=== PATIENT | female | born 1985 | race Caucasian/White ===

== ENCOUNTER → 2018-11-18 08:23 | Outpatient (CLI) | payer BC, SELFPAY ==
--- NOTE | 2018-11-18 08:58 | FL_ITS ---
FL small bowel follow through CLINICAL INDICATION: ITS.REASON: H/O CROHNS,R/O ENTEROVAGINAL FISTULA ORDERING PHYSICIAN: Justice Myles MD PATIENT AGE: 33 years Comparison: None Fluoroscopy time: 56 Seconds FINDINGS: Circle Edger exam is unremarkable. The small bowel has an unremarkable appearance. No obstructing lesions dilatation or mucosal abnormalities or masses are evident. Terminal ileum has an unremarkable appearance. The appendix didn't fill. No fistulous connection between the urinary bladder identified. No extravasation. IMPRESSION: Negative small bowel series
== END ==
PROVIDERS: PCP Nurse Practitioner; Visit Provider Internal Medicine Gastroenterology
DX: Z87.19 Personal history of other diseases of the digestive system (principal)
CPT/HCPCS: 74250

== ENCOUNTER → 2020-07-27 14:25 | Outpatient (CLI) | payer BC, SELFPAY ==
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
== END ==
PROVIDERS: PCP Nurse Practitioner Family; Visit Provider Nurse Practitioner Family
DX: S99.912A Unspecified injury of left ankle, initial encounter (principal); M25.472 Effusion, left ankle
CPT/HCPCS: 73610

== ENCOUNTER → 2020-08-22 11:50 | Outpatient (CLI) | payer BC, SELFPAY ==
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
== END ==
PROVIDERS: PCP Nurse Practitioner Family; Visit Provider Family Medicine
DX: R10.10 Upper abdominal pain, unspecified (principal)
CPT/HCPCS: 74170; Q9967

== ENCOUNTER → 2020-09-12 08:28 | Outpatient (CLI) | payer BC, SELFPAY ==
--- NOTE | 2020-09-12 08:39 | US_ITS ---
PROCEDURE: US GALLBLADDER CLINICAL INDICATION: right upper quad pain COMPARISON: CT CT ABDOMEN WO/W CON from 08/22/2020 FINDINGS: Pancreas: Unremarkable/Not well seen Liver: Unremarkable. There is appropriate direction of blood flow within a non dilated portal vein. Right kidney: Unremarkable appearing. No hydronephrosis. Gallbladder: Gallstones are present. Common bile duct is normal at 3 mm. No gallbladder wall thickening, pericholecystic fluid, or biliary dilatation is evident. IMPRESSION: Cholelithiasis Dictated by: Jean-Pierre Mitchell MD 09/12/2020 18:13 Jean-Pierre Mitchell MD in [place] 09/12/2020 18:13
== END ==
PROVIDERS: PCP Nurse Practitioner Family; Visit Provider Surgery
DX: R10.11 Right upper quadrant pain (principal)
CPT/HCPCS: 76705

== ENCOUNTER → 2020-10-01 14:35 | Outpatient (CLI) | payer BC, SELFPAY ==
[2020-10-01 14:58] LABS: Basophils % 0.5 % (0.1-2.0); Eosinophils # 0.3 K/mm3 (0.0-0.4); Eosinophils % 3.9 % (0.1-12.0); Hematocrit 42.9 % (37.0-47.0); Hemoglobin 14.7 g/dL (12.2-16.2); Lymphocytes # 2.3 K/mm3 (0.7-4.5); Lymphocytes % 32.3 % (10-50); Mean Corpuscular HGB Conc 34.2 g/dL (31.8-35.4); Mean Corpuscular Hemoglobin 30.3 pg (27.0-31.2); Mean Corpuscular Volume 88.6 fl (81-99); Mean Platelet Volume 7.9 fl (7.4-10.4); Monocytes # 0.3 K/mm3 (0.1-1.0); Monocytes % 4.8 % (1.7-9.3); Neutrophils # 4.1 K/mm3 (1.8-7.8); Neutrophils % 58.5 % (37.0-80.0); Platelet Count 333 K/mm3 (142-424); Red Blood Count 4.84 M/mm3 (4.20-5.40); Red Cell Distribution Width 13.3 % (11.5-17.5)
[2020-10-01 15:23] LABS: INR 0.99 (0.9-1.1)
[2020-10-01 15:44] LABS: Chloride 101 mmol/L (98-107)
[2020-10-01 15:45] LABS: Potassium 3.7 mmoL/L (3.5-5.1); Sodium 139 mmol/L (136-145)
[2020-10-01 15:47] LABS: Alanine Aminotransferase 27 U/L (12-78); Alkaline Phosphatase 52 U/L (38-126); Amylase 50 U/L (30-110); Anion Gap 12.7 mEq/L (5-15); Aspartate Amino Transferase 31 U/L (14-36); Bilirubin,Total 0.5 mg/dl (0.2-1.3); Blood Urea Nitrogen 14 mg/dl (7-17); Carbon Dioxide 29 mmol/L (22.0-30.0); Estimated Glomerular Filt Rate 71 ml/min (>60); GFR (African American) 86 ML/MIN (>60)
[2020-10-01 15:48] LABS: Albumin Level 4.5 g/dl (3.5-5.0); Albumin/Globulin Ratio 1.6 (1.1-1.8); Calcium 9.6 mg/dl (8.4-10.2); Globulin 2.8 g/dL (1.3-3.2); Glucose 119 mg/dl (74-100); Lipase 135 U/L (23-300); Total Protein,Serum 7.3 g/dl (6.3-8.2)
[2020-10-01 16:00] LABS: Coronavirus 19 IgG Antibody Negative (Negative); Coronavirus 19 IgM Antibody Negative (Negative)
== END ==
PROVIDERS: Visit Provider Surgery
DX: Z01.818 Encounter for other preprocedural examination (principal); K80.20 Calculus of gallbladder without cholecystitis without obstruction
CPT/HCPCS: 36415; 80053; 82150; 83690; 85025; 85610; 86328

== ENCOUNTER 2020-10-03 07:05 | Day surgery (SDC) | payer BC, SELFPAY ==
[2020-10-01 11:07] VITALS: BMI 35.4
[2020-10-03] VITALS (16 sets, daily range): BP systolic 117–142; BP diastolic 65–99; PULSE 54–81; RESP 12–25; TEMP 36.1–43; O2SAT 92–98
--- NOTE | 2020-10-03 08:09 | HMH.ANESCL ---
[facility] Anesthesia Checklist - Patient Identification Patient Identification: Arm Band, Verbal (Name & ) - Structural Data Admitted From: Home Planned Operative Procedure/s: lap choly Consent for Planned Operative Procedure(s) Verified: Yes Verified Documents: History and Physical - NPO Status Verified Time NPO: 00:00 - Chart Verification Results Verified: CBC, BMP - Additional verifications Patient : No Anesthesia Reactions: No Hx Blood Transfusions: No Blood Transfusion Reaction: No Cephalosporin Allergy: No Previous Colonoscopy: No - Cardiovascular Assessment Heart Sounds: S1 & S2 Pulse Strength: Baseline Pulse Rhythm: Regular Peripheral Edema: No - Airway Assessment C-Spine Mobility Assessed: Yes TMJ Mobility Assessed: Yes Dentition: Good Dentition - Neurological Assessment Level of Consciousness: Awake, Alert, Appropriate Hx Seizures: No Numbness or tingling in extremities: No - Anesthesia Plan Anesthesia Risk discussed: Yes Anesthesia Plan: Verified ASA Class: II Anesthesia Type: General [facility] History I have reviewed the patient's past medical history: Yes Medical History: Reports:: Anxiety, Gastroesophageal Reflux Disease(GERD), Hyperlipidemia, Hypertension Denies:: Cancer, Diabetes Mellitus Type 1, Diabetes Mellitus Type 2, Internal Pacemaker, Lung Disease, MRSA, Seizures *Have you ever received a pneumonia vaccine?: No *Have you received a flu vaccine this season?: No Other Medical History: Denies: Blood Transfusion Reaction Anesthesia experience/problems:: none Other Surgeries: Yes: Colonoscopy, EGD, Hysterectomy-Total, Other (Back sx, ). No: Pacemaker Amputation: No Fractures: No - *Social History Last grade of school completed: Some college Smoking Status: Never smoker Alcohol Intake: never Substance Use Type: other *Occupational Status:: employed Housing: house Household Members: spouse, family *Travel in the last 8 weeks: None - Psychiatric History Pschychiatric History:: Reports:: Anxiety Family Hx:: Non-contributory
--- NOTE | 2020-10-03 10:09 | HMH.OPNOTE ---
Date of procedure: 10/03/20 Pre-op Diagnosis:: Symptomatic gallstones Post-op Diagnosis:: Same Procedure performed:: Laparoscopic cholecystectomy Surgeon:: Vimal Singh MD APPRAISER:: Noel Culp Anesthesia: GETLita Estimated blood loss (mL): 20 Clinical Note:: Patient is a 35-year-old female referred by Dr. Butler for gallbladder. Patient states that in late August she developed horrible pain across her lower abdomen. He does have a reported history of Crohn's disease but the symptoms are very atypical and she has not had a Crohn's flareup in many years. She then developed severe pain across her right abdomen to her epigastric area. She was seen in her primary care provider's office and had a CT scan performed. This was unremarkable other than gallstones. She describes lower abdominal pain radiating around her right side and epigastrium. Her symptoms are exacerbated by certain movements, sexual intercourse, defecation, lifting and pulling, and urinating. She denies any bowel changes. I reviewed her CT scan. There are no other findings other than gallstones. Her symptoms are somewhat atypical but it sounds as though it is likely at least a portion of her symptoms are secondary to her gallbladder. I discussed the options with her and offered her surgery. I explained to her that all of her symptoms may not be alleviated with cholecystectomy. Patient strongly desired proceeding with surgery. Plan will be to proceed with laparoscopic possibly open cholecystectomy. Operative findings:: She had a distended somewhat thickened gallbladder with gallstone. She did have some fatty infiltration of the liver. At the time of the procedure she did have some gaseous distention of the right colon. Operative note:: Patient was taken to the operating room. She was given preoperative intravenous antibiotics. In the operating room she was placed in a supine position. General anesthesia was induced. Abdomen was prepped and draped in the standard surgical fashion. Subumbilical skin incision was made and while performing abdominal wall lift Veress needle was inserted. CO2 pneumoperitoneum was achieved to 15 mmHg. 11 mm optical trocar was inserted at the umbilicus. Intraperitoneal contents were visualized. She was positioned in reverse Trendelenburg and left side down. A couple of 5 mm trochars were inserted in the right upper abdomen. 10 mm trocar was inserted in the epigastrium. She did have some fatty infiltration of the liver. Gallbladder was grasped retracted anteriorly and superiorly over the dome of the liver. Infundibulum was retracted anterior laterally. Blunt dissection was carried out the neck of the gallbladder bluntly incising the visceral peritoneum. Dissection was carried out identifying the cystic duct and cystic artery. Cystic duct was isolated, multiply clipped, and sharply divided. Cystic artery was carefully coagulated with SUZI ultrasonic harmonic mignon. Gallbladder was dissected free from the liver in a retrograde fashion using SUZI ultrasonic harmonic mignon. Gallbladder was placed within an Endo Catch retrieval device removed from the peritoneal cavity via the umbilical trocar site. Judicious use of electrocautery was used on the gallbladder fossa for good hemostasis. Limited irrigation was performed. Trochars were then removed as CO2 pneumoperitoneum was evacuated. Fascia at the umbilicus was closed with a couple of 0 Vicryl sutures. Local anesthetic was infiltrated. Skin incisions were closed with 4-0 Monocryl in a subcuticular fashion. Steri-Strips and dressings were applied. Condition: stable Disposition: PACU Specimens:: Gallbladder and contents Complications:: None immediately apparent
--- NOTE | 2020-10-03 10:21 | P.PN_ITS ---
[facility] Anesthesia Record Part I Intake, IV Amount: 600 Estimated blood loss (mL): 20 Urine output (mL): 0 Blood Products used (#): none Blood Pressure: 142/65 SaO2: 95 Pulse Rate: 81 Respiratory Rate: 12 Temperature: 97.7 F Patient is:: Awake, Drowsy, Nasal O2, Stable Stable to PACU at:: 10:17
--- NOTE | 2020-10-04 07:05 | P.PN_ITS ---
[facility] Anesthesia Record Part II Discharge Time: 10:47 Destination: Surgical Day Care (OP Surgery) PACU nurse assessment reviewed?: Yes Patient Condition:: Good Anesthesia Complications:: None Swallowing reflex intact?: Yes Cyanosis?: No Blood Pressure: 131/87 Pulse Rate: 60 Temperature: 97.7 F Mental Status: Alert & Oriented Pain level:: 4 Nausea and/or vomitting:: None Intake, IV Amount: 0
[2020-10-04 07:06] VITALS: BP 131/87; PULSE 60; TEMP 36.5
== END 2020-10-03 12:18 | disposition home or self-care (01) ==
PROVIDERS: PCP Nurse Practitioner Family; Visit Provider Surgery
PROC: 0FT44ZZ Resection of Gallbladder, Percutaneous Endoscopic Approach (ICD-10-PCS; CPT 47562; principal; 2020-10-03 08:45)
DX: K80.20 Calculus of gallbladder without cholecystitis without obstruction; K76.0 Fatty (change of) liver, not elsewhere classified; K63.89 Other specified diseases of intestine; I10 Essential (primary) hypertension; E78.5 Hyperlipidemia, unspecified; K21.9 Gastro-esophageal reflux disease without esophagitis; F41.9 Anxiety disorder, unspecified; Z79.899 Other long term (current) drug therapy
CPT/HCPCS: 47562; 96374; J2405; J2710

== ENCOUNTER 2021-06-12 14:04 | Emergency (ER) | payer BC, SELFPAY ==
[2021-06-12 14:06] VITALS: BP 116/71; PULSE 74; RESP 20; TEMP 36.9; O2SAT 94; BMI 34.3
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
--- NOTE | 2021-06-12 14:39 | PC.NURSE ---
notified rad of orders on pt
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
[2021-06-12 15:58] VITALS: BP 116/79; PULSE 75; RESP 16; TEMP 36.9; O2SAT 95
== END 2021-06-12 16:00 | disposition home or self-care (01) ==
PROVIDERS: Emergency Provider Internal Medicine; PCP Nurse Practitioner Family
DX: S16.1XXA Strain of muscle, fascia and tendon at neck level, initial encounter (principal); V43.52XA Car driver injured in collision with other type car in traffic accident, initial encounter; Y92.414 Local residential or business street as the place of occurrence of the external cause; S50.12XA Contusion of left forearm, initial encounter; S20.219A Contusion of unspecified front wall of thorax, initial encounter; S30.1XXA Contusion of abdominal wall, initial encounter
CPT/HCPCS: 70450; 71046; 72125; 73090; 99282

== ENCOUNTER → 2021-08-12 12:01 | Outpatient (CLI) | payer BC, SELFPAY ==
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
== END ==
PROVIDERS: PCP Family Medicine; Visit Provider Nurse Practitioner Family
DX: M54.42 Lumbago with sciatica, left side (principal); M54.41 Lumbago with sciatica, right side; Z98.890 Other specified postprocedural states
CPT/HCPCS: 72110

== ENCOUNTER → 2021-08-29 10:58 | Outpatient (CLI) | payer BC, SELFPAY ==
--- NOTE | 2021-08-29 11:10 | MR_ITS ---
PROCEDURE: MR LUMBAR SPINE WO CON CLINICAL INDICATION: LBP Low back pain times 3-4 months without known injury. Patient states she had lumbar surgery in 2014. COMPARISON: CT CT ABDOMEN WO/W CON from 08/22/2020 CR XR LUMBAR SPINE MIN 4V from 08/12/2021 TECHNIQUE: Standard multiplanar multiecho sequences are performed without contrast. 3-D MIP and myelographic images are also rendered and reviewed FINDINGS: There is straightening of the lumbar lordosis. There is degenerative disc disease at L5-S1 with disc space narrowing and minimal retrolisthesis of L5 on S1. At L1-2, there is no canal or neural foraminal stenosis. At L2-3, she there is no canal or neural foraminal stenosis. At L3-4, there is no canal or neural foraminal stenosis. At L4-5, there is mild diffuse disc bulge producing mild bilateral neural foraminal stenosis. There is also fluid within the facet joints bilaterally at this level suggesting this may be a pain generator. At L5 S1, there is diffuse disc bulge producing moderate right and mild left neural foraminal stenosis. There is also fluid in the facets at this level suggesting this may be a pain generator. IMPRESSION: Edema in bilateral facet joints at L4-5 and L5-S1 (worst at L4-5) suggesting this may be a pain generator. Consider bilateral facet joint injections at these levels. Dictated by: Carine Harrison MD 08/29/2021 14:00 Carine Harrison MD in [place] 08/29/2021 14:00
== END ==
PROVIDERS: PCP Family Medicine; Visit Provider Nurse Practitioner Family
DX: M54.42 Lumbago with sciatica, left side (principal); Z98.890 Other specified postprocedural states
CPT/HCPCS: 72148; 76376

== ENCOUNTER 2021-09-11 10:07 | Emergency (ER) | payer BC, SELFPAY ==
[2021-09-11 11:13] LABS: UTC Strep Screen (Rapid) Negative (Negative)
[2021-09-11 11:17] VITALS: BP 150/94; PULSE 78; RESP 20; TEMP 36.9; O2SAT 98; BMI 35.5
--- NOTE | 2021-09-11 11:30 | HMH.EDUTC ---
[facility] [place] Disposition Clinical Impression: Viral syndrome Sinusitis Qualifiers: Sinusitis location: unspecified location Chronicity: acute Recurrence: non-recurrent Qualified Code(s): J01.90 - Acute sinusitis, unspecified Disposition: Home, Self-Care Condition on Discharge: Good Instructions: Sinusitis, DI for Sinusitis Additional Instructions: Drink plenty of fluids. Take tylenol or ibuprofen for pain or fever. Take the medications as directed. Follow up with your regular doctor. GO TO THE ER FOR ANY WORSENING SYMPTOMS Quarantine until you know the results of your covid-19 test. If it is positive, the health department should call you and give you further instructions about your length of Quarantine and other things. Notify your school or workplace of your results and follow their instructions regarding return to work/school. Prescriptions: Brompheniramine/Pseudoephed/Dm [Bromfed Dm Cough Syrup] 5 ml PO Q6HP PRN #240 ml PRN Reason: Cough Transmission Status: Received by [facility] #[id number] Ondansetron [Zofran 4mg ODT] 4 mg PO Q8HP PRN #12 tab PRN Reason: Nausea Transmission Status: Received by [facility] #[id number] Azithromycin [Z-Reuben 250mg Tab*] 250 mg PO UD DOSE PK #6 tab Transmission Status: Received by [facility] #[id number] Referrals: Ligia Phillips APRN [Primary Care Provider] - Forms: Work/School Release Time of Disposition: 12:00 Medical Decision Making - Medical Records Medical records reviewed: No: I reviewed the patient's medical records. - Jose Guadalupe Inquiry Pt receiving controlled substance: No Vital Signs: 09/11/21 11:17 09/11/21 12:05 Temperature 98.5 F 98.5 F Temperature Source Oral Pulse Rate 78 Pulse Rate [Left] 78 Respiratory Rate 20 20 Blood Pressure 150/94 H Blood Pressure [Right Arm] 150/94 H Blood Pressure Mean [Right Arm] 112 02 Sat by Pulse Oximetry 98 - Lab Data Lab Results 09/11/21 11:06: Strep Scn Rapid Clinic Negative Orders (Tests/Meds): ORDERS Category Date Time Status Strep Screen Confirmation Routine Micro 09/11/21 11:06 Received [facility] [place] HPI - General Stated complaint: sore throat, cough, congestion Time Seen by Provider: 09/11/21 11:30 Mode of Arrival: Ambulatory Source of Information: Patient Limitations: No Limitations Description of Symptoms (Recalled from Triage Doc. by RN): pt c/o sore throat, MOSER, cough, congestion, nausea, lethargy and bilateral ear aches. x3 days. HEENT Symptoms (Recalled from RN notes): Yes (sore throat, MOSER, bilateral ear aches, congestion) Resp Symptoms (Recalled from RN notes): Yes (cough) Skin Symptoms (Recalled from RN notes): No MS Symptoms (Recalled from RN notes): No Functional Status (Recalled from RN notes): lethargy - History of Present Illness Provider Complaint: She c/o feeling bad and chilling for the past 1 day. She also has a sore throat and a runny nose. She has a cough, but she does not have significant chest congestion. She is also having nausea and diarrhea. - Related Data Home Medications Medication Instructions Recorded Confirmed Escitalopram Oxalate [Lexapro] 10 mg PO DAILY 11/11/18 08/28/21 Propranolol HCl 80 mg PO DAILY 11/11/18 08/28/21 Thyroid,Pork [[place] Thyroid] 60 mg PO DAILY 11/11/18 08/28/21 gemfibroziL [Gemfibrozil] 600 mg PO DAILY 11/11/18 08/28/21 hydroCHLOROthiazide [HCTZ 25mg 25 mg PO DAILY 11/11/18 08/28/21 tab] Previous Rx's Medication Instructions Recorded Diclofenac Sodium [Diclofenac 75mg 75 mg PO BID 10 Days #20 tab 06/12/21 Tab] Azithromycin [Z-Reuben 250mg Tab*] 250 mg PO UD DOSE PK #6 tab 09/11/21 Brompheniramine/Pseudoephed/Dm 5 ml PO Q6HP PRN #240 ml 09/11/21 [Bromfed Dm Cough Syrup] Ondansetron [Zofran 4mg ODT] 4 mg PO Q8HP PRN #12 tab 09/11/21 Allergies Allergy/AdvReac Type Severity Reaction Status Date / Time benztropine Allergy Unknown Verified 08/28/21 14:20 allergy
[2021-09-11 12:05] VITALS: BP 150/94; PULSE 78; RESP 20; TEMP 36.9
== END 2021-09-11 12:10 | disposition home or self-care (01) ==
PROVIDERS: Emergency Provider Nurse Practitioner Family; PCP Nurse Practitioner Family
DX: B34.9 Viral infection, unspecified (principal); J01.90 Acute sinusitis, unspecified; Z20.822 Contact with and (suspected) exposure to COVID-19; I10 Essential (primary) hypertension; E78.5 Hyperlipidemia, unspecified; K21.9 Gastro-esophageal reflux disease without esophagitis; Z79.899 Other long term (current) drug therapy
CPT/HCPCS: 87880; 99202; C9803; G0463; U0003; U0005

== ENCOUNTER → 2021-11-29 10:19 | Outpatient (CLI) | payer BC, SELFPAY ==
[2021-11-30 15:10] LABS: Covid-19 Nasal PCR Sendout Lex POSITIVE
== END ==
PROVIDERS: Visit Provider Nurse Practitioner
DX: U07.1 COVID-19 (principal)
CPT/HCPCS: C9803; U0004; U0005

== ENCOUNTER → 2021-12-04 16:06 | Outpatient (CLI) | payer BC, SELFPAY | PROVIDERS: Visit Provider Nurse Practitioner Obstetrics & Gynecology | DX: N61.1 Abscess of the breast and nipple (principal) | CPT/HCPCS: 87070; 87077; 87186; 87205 ==

== ENCOUNTER → 2022-01-15 07:51 | Outpatient (CLI) | payer BC, SELFPAY ==
--- NOTE | 2022-01-15 07:51 | MM_ITS ---
PROCEDURE INFORMATION: Exam: Bilateral Screening 3D Mammography Exam date and time: 01/15/2022 7:51 AM Age: 36 years old Clinical indication: Baseline. Family history of maternal great aunt and paternal aunts with breast cancer. TECHNIQUE: Imaging protocol: Bilateral Screening tomosynthesis and 2D mammography including computer-aided detection (CAD) when performed. COMPARISON: No relevant prior studies available. FINDINGS: MAMMOGRAPHY: Breast composition: The breast tissue is composed of scattered areas of fibroglandular density. Mass: None. Architectural distortion: None. Calcifications: No suspicious calcifications. Asymmetric density: None. Skin thickening: None. Axillary adenopathy: None. IMPRESSION: No mammographic evidence of malignancy. Annual screening is recommended unless otherwise clinically indicated. ASSESSMENT: BI-RADS Category 1: Negative
== END ==
PROVIDERS: PCP Nurse Practitioner Family; Visit Provider Nurse Practitioner Obstetrics & Gynecology
DX: Z12.31 Encounter for screening mammogram for malignant neoplasm of breast (principal)
CPT/HCPCS: 77063; 77067

== ENCOUNTER 2022-02-10 09:00 | Emergency (ER) | payer BC, SELFPAY ==
[2022-02-10 09:10] VITALS: BP 126/88; PULSE 73; RESP 18; TEMP 36.7; O2SAT 97; BMI 36.6
--- NOTE | 2022-02-10 09:23 | XR_ITS ---
FINAL REPORT CLINICAL HISTORY: pain FINDINGS: Two views of the left tibia-fibula demonstrate no acute fracture or dislocation. The joint spaces appear normal. The visualized bony structures are well aligned. No soft tissue abnormality is seen. IMPRESSION: No acute process. Reviewed, Interpreted and Dictated by Shlomo Mireles MD Transcribed by Tuan Portillo Authenticated by Shlomo Mireles MD on 02/10/2022 11:05:07 AM [facility]
--- NOTE | 2022-02-10 09:23 | XR_ITS ---
FINAL REPORT CLINICAL HISTORY: pain from wrestling with FINDINGS: 2 views of the left hip were obtained. There is no acute fracture or dislocation. The joint spaces are intact. There are no soft tissue abnormalities. IMPRESSION: No acute process. Reviewed, Interpreted and Dictated by Shlomo Mireles MD Transcribed by Tuan Portillo Authenticated by Shlomo Mireles MD on 02/10/2022 11:05:06 AM [facility]
--- NOTE | 2022-02-10 09:23 | XR_ITS ---
FINAL REPORT CLINICAL HISTORY: pain wrestling with FINDINGS: 3 views of the left knee were obtained. There is no acute fracture or dislocation. The joint spaces are intact. There is no soft tissue abnormality. IMPRESSION: No acute process. Reviewed, Interpreted and Dictated by Shlomo Mireles MD Transcribed by Tuan Portillo Authenticated by Shlomo Mireles MD on 02/10/2022 11:05:06 AM [facility]
--- NOTE | 2022-02-10 09:23 | XR_ITS ---
FINAL REPORT CLINICAL HISTORY: pain,wrestling with FINDINGS: Multiple views of the left femur were obtained. There is no acute fracture or dislocation. Visualized joint spaces are intact. There is no acute soft tissue abnormality. IMPRESSION: No acute process. Reviewed, Interpreted and Dictated by Shlomo Mireles MD Transcribed by Tuan Portillo Authenticated by Shlomo Mireles MD on 02/10/2022 11:05:05 AM [facility]
--- NOTE | 2022-02-10 09:23 | XR_ITS ---
FINAL REPORT CLINICAL HISTORY: pain FINDINGS: LEFT ANKLE: Three views of the left ankle were obtained. There is no acute fracture or dislocation. The joint spaces and mortise are intact. There is a moderate plantar spur. An os trigonum is present. There is no soft tissue abnormality. IMPRESSION: No acute process. Reviewed, Interpreted and Dictated by Shlomo Mireles MD Transcribed by Tuan Portillo Authenticated by Shlomo Mireles MD on 02/10/2022 11:05:08 AM [facility]
--- NOTE | 2022-02-10 09:48 | HMH.EDUTC ---
[facility] [place] Disposition Clinical Impression: Left leg pain, Strain of other muscle(s) and tendon(s) at lower leg level, left leg, initial encounter Disposition: Home, Self-Care Condition on Discharge: Good Instructions: DI for Leg Pain, How to Use a Knee Immobilizer, How to Use Crutches Additional Instructions: Rest the extremity, apply ice for 15 minutes as tolerated three or four times per day, Elevate the extremity as tolerated while you are resting. Take ibuprofen for pain. I sent in a prescription to your pharmacy. Follow up with Dr. Armstrong (orthopedics). I put in a referral but you need to call his office and schedule an appointment. Follow up with your regular doctor. GO TO THE ER FOR ANY WORSENING SYMPTOMS Prescriptions: Ibuprofen [Ibuprofen 800mg Tablet] 800 mg PO Q8HP PRN #30 tab PRN Reason: Moderate Pain Transmission Status: Pending to [facility] #[id number] Referrals: Ligia Phillips APRN [Primary Care Provider] - Paco Armstrong MD [Staff Physician] - Forms: Work/School Release Time of Disposition: 10:19 Medical Decision Making - Medical Records Medical records reviewed: No: I reviewed the patient's medical records. - Jose Guadalupe Inquiry Pt receiving controlled substance: No Vital Signs: 02/10/22 09:10 02/10/22 10:07 Temperature 98.1 F 98.1 F Temperature Source Oral Pulse Rate 73 Pulse Rate [Right Brachial] 73 Respiratory Rate 18 18 Blood Pressure 126/88 Blood Pressure [Right Arm] 126/88 Blood Pressure Mean [Right Arm] 100 Blood Pressure Source [Right Arm] Automatic Cuff Blood Pressure Position [Right Arm] Sitting 02 Sat by Pulse Oximetry 97 Oxygen Delivery Method Room Air Orders (Tests/Meds): ORDERS Category Date Time Status XR ankle LT min 3V Stat Exams 02/10/22 09:23 Taken XR femur LT 2V Stat Exams 02/10/22 09:23 Taken XR hip LT 2-3V w/pelvis Stat Exams 02/10/22 09:23 Taken XR knee LT 3V Stat Exams 02/10/22 09:23 Taken XR tibia fibula LT 2V Stat Exams 02/10/22 09:23 Taken [facility] [place] HPI - General Stated complaint: AO 4/9 lt leg pain Time Seen by Provider: 02/10/22 09:48 Mode of Arrival: Ambulatory Source of Information: Patient Limitations: No Limitations Description of Symptoms (Recalled from Triage Doc. by RN): PATIENT C/O PAIN TO LEFT LEG FROM HIP TO ANKLE. CANNOT PUT WEIGHT ON LEG OR STRAIGHTEN IT OUT. SHE STATES SHE WAS WRESTLING WITH HER 4 DAYS AGO AND FELT A SNAP/POP IN THAT LEG HEENT Symptoms (Recalled from RN notes): No Resp Symptoms (Recalled from RN notes): No Skin Symptoms (Recalled from RN notes): No MS Symptoms (Recalled from RN notes): Yes Functional Status (Recalled from RN notes): WNL - History of Present Illness Provider Complaint: She states that her and her were wrestling yesterday when her left leg got twisted. At first, she did not feel like it was hurt. But as the day went on her knee and lower leg got sore and painful to walk on. At this time, it hurts to straighten out her left leg. She denies any domestic abuse. - Related Data Home Medications Medication Instructions Recorded Confirmed Escitalopram Oxalate [Lexapro] 10 mg PO DAILY 11/11/18 02/10/22 Propranolol HCl 80 mg PO DAILY 11/11/18 02/10/22 Thyroid,Pork [[place] Thyroid] 60 mg PO DAILY 11/11/18 02/10/22 gemfibroziL [Gemfibrozil] 600 mg PO DAILY 11/11/18 02/10/22 hydroCHLOROthiazide [HCTZ 25mg 25 mg PO DAILY 11/11/18 02/10/22 tab] Previous Rx's Medication Instructions Recorded Ibuprofen [Ibuprofen 800mg 800 mg PO Q8HP PRN #30 tab 02/10/22 Tablet] Allergies Allergy/AdvReac Type Severity Reaction Status Date / Time benztropine Allergy Unknown Verified 12/04/21 15:09 allergy reaction prochlorperazine Allergy Unknown Verified 12/04/21 15:09 allergy reaction - Worker's Comp Is this a Worker's Comp case?: No H History - Hepatitis A Screen Drug use history?: No High risk sexual
[2022-02-10 10:07] VITALS: BP 126/88; PULSE 73; RESP 18; TEMP 36.7; O2SAT 97
== END 2022-02-10 10:35 | disposition home or self-care (01) ==
PROVIDERS: Emergency Provider Nurse Practitioner Family; PCP Nurse Practitioner Family
DX: S83.92XA Sprain of unspecified site of left knee, initial encounter (principal); S86.812A Strain of other muscle(s) and tendon(s) at lower leg level, left leg, initial encounter; X50.0XXA Overexertion from strenuous movement or load, initial encounter; X50.9XXA Other and unspecified overexertion or strenuous movements or postures, initial encounter; Y92.019 Unspecified place in single-family (private) house as the place of occurrence of the external cause; K21.9 Gastro-esophageal reflux disease without esophagitis; I10 Essential (primary) hypertension; E78.5 Hyperlipidemia, unspecified; F41.9 Anxiety disorder, unspecified; Z79.899 Other long term (current) drug therapy
CPT/HCPCS: 29505; 73502; 73552; 73562; 73590; 73610; 99213; G0463

== ENCOUNTER → 2022-03-18 07:51 | Outpatient (CLI) | payer BC, SELFPAY ==
--- NOTE | 2022-03-18 07:59 | MR_ITS ---
FINAL REPORT CLINICAL HISTORY: INJURY OF LEFT KNEE. KNEE PAIN X2 WKS. KNEE FEELS LIKE IT IS GOING TO GIVE OUT. SWELLING AROUND PATELLA. FINDINGS: Multiplanar MR imaging of the right knee was performed without contrast. The medial and lateral menisci are intact without evidence of meniscal tear. The anterior cruciate ligament has an abnormal appearance consistent with a partial tear. Some of the fibers appear intact. The posterior cruciate ligament is intact. The medial collateral ligament and lateral ligamentous complex are intact. The patellar and quadriceps tendons are intact. There is no evidence of fracture. No focal abnormality is identified of the articular cartilage. There is 8 mm of lateral patellar subluxation. There is edema in the superior aspect of Hoffa's fat pad which can be seen with patellar tracking disorder. A small joint effusion is seen. The musculature is intact. No soft tissue mass or cyst is identified. IMPRESSION: Partial tear of the anterior cruciate ligament. Lateral patellar subluxation with edema in the superior aspect of Hoffa's fat pad. Small joint effusion. Reviewed, Interpreted and Dictated by Vimal Mazariegos III, MD Transcribed by Tuan Portillo Authenticated by Vimal Mazariegos III, MD on 03/18/2022 10:27:08 AM [facility]
== END ==
PROVIDERS: PCP Nurse Practitioner Family; Visit Provider Nurse Practitioner Family
DX: M25.562 Pain in left knee (principal); M25.362 Other instability, left knee; S89.92XD Unspecified injury of left lower leg, subsequent encounter
CPT/HCPCS: 73721

== ENCOUNTER → 2023-03-06 11:18 | Outpatient (CLI) | payer BC, SELFPAY | LOC: RT 11:21 | PROVIDERS: PCP Nurse Practitioner Family; Visit Provider Nurse Practitioner | DX: R06.00 Dyspnea, unspecified (principal); R00.2 Palpitations; R60.9 Edema, unspecified; R94.31 Abnormal electrocardiogram [ECG] [EKG] | CPT/HCPCS: 93270 ==

== ENCOUNTER 2023-03-26 08:45 | Emergency (ER) | payer BC, SELFPAY ==
--- NOTE | 2023-03-26 08:44 | ECG_ITS ---
APPROVED REPORT Exam: Resting ECG HR:64 bpm ECG Measurements Heart Rate 64 AXES WV 186 P 40 QRSd 81 QRS 26 QT 411 T 30 QTc 421 Conclusion SINUS RHYTHM NORMAL ECG UNCONFIRMED REPORT Electronically signed by : Yoandy Centeno MD 03/26/2023 17:12:50
[2023-03-26 08:46] VITALS: BP 155/89; PULSE 61; RESP 14; TEMP 36.7; O2SAT 93; BMI 36.1
[2023-03-26 08:49] VITALS: BMI 36.1
[2023-03-26 08:50] VITALS: BMI 36.1
--- NOTE | 2023-03-26 08:51 | XR_ITS ---
FINAL REPORT CLINICAL HISTORY: left sided chest pain COMPARISON: 06/12/2021 FINDINGS: SINGLE-VIEW CHEST The heart size is normal. The mediastinum is normal. There are low lung volumes with mild bibasilar atelectasis. There is no pneumothorax. IMPRESSION: Mild bibasilar atelectasis. Reviewed, Interpreted and Dictated by Vimal Mazariegos III, MD Transcribed by Ashley Antunez Authenticated and [facility]
[2023-03-26 08:58] LABS: Basophils # 0.1 K/mm3 (0-0.2); Basophils % 0.6 % (0.1-2.0); Eosinophils # 0.1 K/mm3 (0.0-0.4); Eosinophils % 1.3 % (0.1-12.0); Hematocrit 43.9 % (37.0-47.0); Hemoglobin 14.3 g/dL (12.2-16.2); Lymphocytes # 1.9 K/mm3 (0.7-4.5); Lymphocytes % 22.1 % (10-50); Mean Corpuscular HGB Conc 32.4 g/dL (31.8-35.4); Mean Corpuscular Hemoglobin 29.6 pg (27.0-31.2); Mean Corpuscular Volume 91.2 fl (81-99); Mean Platelet Volume 7.9 fl (7.4-10.4); Monocytes # 0.4 K/mm3 (0.1-1.0); Monocytes % 4.3 % (1.7-9.3); Neutrophils # 6.3 K/mm3 (1.8-7.8); Neutrophils % 71.5 % (37.0-80.0); Platelet Count 344 K/mm3 (142-424); Red Blood Count 4.82 M/mm3 (4.20-5.40); White Blood Count 8.8 K/mm3 (4.8-10.8)
--- NOTE | 2023-03-26 08:58 | HMH.EDGENADL ---
Discharge Plan Disposition Patient Disposition: Home, Self-Care Condition: Good Prescriptions Prescriptions: New meloxicam 7.5 mg tablet 7.5 mg PO DAILY Qty: 14 0RF cyclobenzaprine 10 mg tablet 10 mg PO TID PRN (Reason: muscle spasm) Qty: 14 0RF No Action cetirizine 10 mg tablet 10 mg PO DAILY Label Comments: TAKE 1 TABLET BY MOUTH EVERY DAY [place] Thyroid 120 mg tablet 120 mg PO DAILY Label Comments: TAKE 1 TABLET BY MOUTH EVERY DAY ON AN EMPTY STOMACH cholecalciferol (vitamin D3) 50 mcg (2,000 unit) capsule 100 mcg PO DAILY propranolol 80 MG tablet 80 mg PO DAILY hydrochlorothiazide 25 MG tablet 25 mg PO DAILY escitalopram oxalate 10 MG tablet 10 mg PO DAILY gemfibrozil 600 mg tablet 600 mg PO BID ibuprofen 800 MG tablet 800 mg PO Q8HP PRN (Reason: Moderate Pain) Qty: 30 0RF Referrals Follow up/Referrals: Ligia Phillips APRN [Primary Care Provider] - See instructions Clinical Impressions Clinical Impression: Atypical chest pain Instructions Patient Instructions: DI for Atypical Chest Pain Print Language Print Language: Vincentian Discharge ED Provider: Horace Morales General Adult HPI General Chief complaint: Chest Pain Stated complaint: chest pain Time Seen by Provider: 03/26/23 09:56 Mode of Arrival: Ambulatory Source of Information: Patient Limitations: No Limitations Description of Symptoms (Recalled from ER Triage Doc. by RN): 37 yo F presents to ED with chest pain and shortness of air. pt states symptoms began around 0700 this am. pt was at work and the pain got worse. pt states pain was located in center of chest into left shoulder. pt states pain is currently in middle of back History of Present Illness HPI narrative: Patient presents to the emergency department with left-sided chest wall pain which started around 6:30 this morning. The patient states that she was at work and bending and twisting when she had a sudden onset of left-sided chest pain radiating into her back. She states it radiates around her chest wall. Describes some associated shortness of breath. Denies any nausea, vomiting or diaphoresis. States that she has a history of atherosclerosis which was noted on a ophthalmologically exam. She is followed by Dr. Koch. Denies any recent falls, trauma or illnesses Related Data Home Medications Medication Instructions Recorded Confirmed escitalopram oxalate 10 mg tablet 10 mg PO DAILY mood 11/11/18 03/05/23 hydrochlorothiazide 25 mg tablet 25 mg PO DAILY Fluid 11/11/18 03/05/23 propranolol 80 mg tablet 80 mg PO DAILY High blood pressure 11/11/18 03/05/23 cetirizine 10 mg tablet 10 mg PO DAILY 03/05/23 03/05/23 cholecalciferol (vitamin D3) 50 100 mcg PO DAILY 03/05/23 03/05/23 mcg (2,000 unit) capsule gemfibrozil 600 mg tablet 600 mg PO BID Cholesterol 03/05/23 03/05/23 thyroid (pork) 120 mg tablet 120 mg PO DAILY 03/05/23 03/05/23 ([place] Thyroid) Previous Rx's Medication Instructions Recorded ibuprofen 800 mg tablet 800 mg PO Q8HP PRN Moderate Pain 02/10/22 #30 tabs cyclobenzaprine 10 mg tablet 10 mg PO TID PRN muscle spasm #14 03/26/23 tabs meloxicam 7.5 mg tablet 7.5 mg PO DAILY #14 tabs 03/26/23 Allergies Allergy/AdvReac Type Severity Reaction Status Date / Time benztropine Allergy Unknown Verified 03/05/23 14:52 allergy reaction prochlorperazine Allergy Unknown Verified 03/05/23 14:52 allergy reaction PFSH PFS Disclaimer: The information contained in this section may have been updated after the patient was seen, as this information can be updated by other users. Medical History Abnormal electrocardiogram [ECG] [EKG] Chest pain Dyspnea Palpitations Social History Smoking Status: Never smoker alcohol intake: never substance
[2023-03-26 09:01] VITALS: BP 137/108; PULSE 63; RESP 18; O2SAT 96
[2023-03-26 09:04] LABS: Chloride 97 mmol/L (98-107); Potassium 3.9 mmoL/L (3.5-5.1); Sodium 140 mmol/L (136-145)
[2023-03-26 09:07] LABS: Anion Gap 16.9 mEq/L (5-15); Blood Urea Nitrogen 19 mg/dl (7-17); Calcium 9.2 mg/dl (8.4-10.2); Carbon Dioxide 30 mmol/L (22.0-30.0); Creatinine Clearance Estimated 139 mL/min (50-200); Estimated Glomerular Filt Rate 80 ml/min (>60); GFR (African American) 97 ML/MIN (>60); Glucose 108 mg/dl (74-100)
[2023-03-26 09:19] VITALS: BP 122/82; PULSE 67; RESP 18; O2SAT 96
[2023-03-26 09:24] LABS: Troponin I < 0.01 ng/ml (0.00-0.034)
[2023-03-26 09:30] VITALS: BP 121/80; PULSE 57; RESP 13; O2SAT 95
[2023-03-26 10:00] VITALS: BP 125/83; PULSE 60; RESP 12; O2SAT 94
[2023-03-26 10:13] VITALS: BP 125/83; PULSE 61; RESP 13; TEMP 36.7
== END 2023-03-26 10:15 | disposition home or self-care (01) ==
PROVIDERS: Emergency Provider Emergency Medicine; PCP Nurse Practitioner Family
DX: R07.89 Other chest pain (principal); R06.02 Shortness of breath
CPT/HCPCS: 71045; 80048; 84484; 85025; 93005; 96374; 96375; 99285

== ENCOUNTER → 2023-04-02 06:36 | Outpatient (CLI) | payer BC, SELFPAY ==
--- NOTE | 2023-04-02 06:37 | NM_ITS ---
APPROVED REPORT Exam: Nuclear Stress Test Indication: CHEST PAIN..SOA..PALPITATIONS..FATIGUE Patient Location: Outpatient Stress Tech: Shelia Christine VA Tech:Leslie FangSD RT(R)(N) Ht: 5 ft 3 in Wt: 207 lbs Bra Size: 38D HR: 74 bpm BP: 138/98 mmHg BSA: 1.96 m2 TID: 1.13 BMI: 36.6 History: CHEST PAIN..SOA..PALPITATIONS..FATIGUE Procedure: Patient received 0.4 mg of intravenous Lexiscan, resting heart rate 74 bpm, resting blood pressure 138/98 mmHg, with Lexiscan maximum heart rate achieved was 109 bpm which is 85 % of the maximum predicted heart rate and blood pressure was 141/93 mmHg. With Lexiscan, patient denied any complaint of chest pain. Cardiac Stress and Resting SPECT Images: Cardiac Stress and Resting SPECT images were obtained using technetium 99m Myoview 31.8 mCi stress and 10.75 mCi at rest. Resting and stress imaging in both supine and prone positions demonstrate no fixed or reversible perfusion defects. Gated imaging demonstrates normal global and regional LV systolic function. LVEF is calculated at 65% Conclusion: No fixed or reversible perfusion defects. Gated imaging demonstrates normal global and regional LV systolic function. LVEF is calculated at 65% Electronically signed by : Madison Miranda, 04/02/2023 23:16:42
--- NOTE | 2023-04-02 06:37 | CA_ITS ---
APPROVED REPORT Exam: Pharmacologic Technologist: Shelia Lopez, Ht: 5 ft 3 in Wt: 216 lbs BSA: 2.00 m2 HR: 68 bpm BP: 138/98 mmHg Rhythm: NSR Medical History Medications: Propranolol,,,,, Vitamin D3,,,,, Escitalopram,,,,, HCTZ,,,,, Cetrizine,,,,, Ibuprofen,,,,, Gemfibrozil,,,,, [place] Thyroid,,,,, Stress Test Details Test: LEXISCAN Reason for pharmacologic stress test: physical limitation. HR Resting HR: 74 bpm Max Heart Rate (APMHR): 182 bpm Max HR Achieved: 109 bpm Target HR (85% APMHR): 155 bpm % of APMHR: 60 Recovery HR: 81 bpm BP Resting BP: 138/98 mmHg Max BP: 141/93 mmHg Recovery BP: 141.0/93.0 mmHg ECG Resting ECG: NSR, rightward axis, NS ST abns Stress ECG: No change Arrhythmia: None Recovery ECG: No change Recovery Arrhythmia: None Clinical Exercise duration: 04:00 min Highest Stage Achieved: Stress ECG Conclusion Symptoms: SOA, chest pressure, head discomfort. Arrhythmias/Ectopy: None ST-T Changes: No significant changes. Conclusion: Unremarkable Lexiscan stress. Myoview images reported separately. Test Summary REST . . . . . . . Resting REST 02:27 . . 74 . 138/ 98 . . Stage 1 01:00 . . 101 . . . . Stage 2 01:00 . . 103 . 133/ 87 . . Stage 3 01:00 . . 100 . 129/ 87 . . Stage 4 01:00 . . 89 . 138/ 88 . Stop exercise at 04:00 RECOVERY 01:00 . . 87 . . . . RECOVERY 02:00 . . 86 . 139/ 90 . . RECOVERY 03:00 . . 81 . 141/ 93 . . RECOVERY 03:18 . . 78 . 141/ 93 . . Electronically signed by : Madison Miranda, 04/02/2023 23:13:30
== END ==
LOC: RAD 06:37
PROVIDERS: PCP Nurse Practitioner Family; Visit Provider Nurse Practitioner
DX: R06.00 Dyspnea, unspecified (principal); R00.2 Palpitations; R94.31 Abnormal electrocardiogram [ECG] [EKG]
CPT/HCPCS: 78452; 93017; 93306; A9502; J2785

== ENCOUNTER → 2023-04-14 12:19 | Outpatient (CLI) | payer BC, SELFPAY | LOC: SL 12:19 | PROVIDERS: PCP Internal Medicine; Visit Provider Internal Medicine | DX: G47.30 Sleep apnea, unspecified (principal); R40.0 Somnolence; R06.83 Snoring | CPT/HCPCS: G0399 ==

== ENCOUNTER 2023-06-28 10:32 | Emergency (ER) | payer BC, SELFPAY ==
[2023-06-28 10:38] VITALS: BP 118/87; PULSE 80; RESP 18; TEMP 36.5; O2SAT 96; BMI 34.3
[2023-06-28 10:39] VITALS: BP 118/87; PULSE 78; O2SAT 93
--- NOTE | 2023-06-28 10:41 | XR_ITS ---
PROCEDURE INFORMATION: Exam: XR Left Ankle Exam date and time: 06/28/2023 10:41 AM Age: 37 years old Clinical indication: Injury or trauma; Fall; Blunt trauma; Ankle; Left TECHNIQUE: Imaging protocol: Radiologic exam of the left ankle. Views: 3 or more views. COMPARISON: CR XR ANKLE LT MIN 3V 02/10/2022 9:24 AM FINDINGS: Bones/joints: No acute fracture or malalignment. Joint spaces are maintained. Soft tissues: Normal. IMPRESSION: No acute fracture or malalignment.
--- NOTE | 2023-06-28 10:41 | XR_ITS ---
PROCEDURE INFORMATION: Exam: XR Left Foot Exam date and time: 06/28/2023 10:42 AM Age: 37 years old Clinical indication: Injury or trauma; Fall; Blunt trauma; Ankle; Left TECHNIQUE: Imaging protocol: Radiologic exam of the left foot. Views: 3 or more views. COMPARISON: CR XR ANKLE LT MIN 3V 06/28/2023 10:41 AM FINDINGS: Bones/joints: No acute fracture or malalignment. Joint spaces are maintained. Calcaneal enthesopathy. Soft tissues: Normal. IMPRESSION: No acute fracture or malalignment.
--- NOTE | 2023-06-28 10:47 | HMH.EDGENADL ---
Discharge Plan Disposition Patient Disposition: Home, Self-Care Prescriptions Prescriptions: No Action atorvastatin 10 mg tablet 10 mg PO DAILY Patient Comments: TAKE 1 TABLET BY MOUTH EVERY DAY meloxicam 15 mg tablet 15 mg PO DAILY Patient Comments: TAKE 1 TABLET BY MOUTH EVERY DAY propranolol 80 mg tablet 80 mg PO BID Qty: 60 2RF cetirizine 10 mg tablet 10 mg PO DAILY Patient Comments: TAKE 1 TABLET BY MOUTH EVERY DAY [place] Thyroid 120 mg tablet 120 mg PO DAILY Patient Comments: TAKE 1 TABLET BY MOUTH EVERY DAY ON AN EMPTY STOMACH cholecalciferol (vitamin D3) 50 mcg (2,000 unit) capsule 100 mcg PO DAILY hydrochlorothiazide 25 MG tablet 25 mg PO DAILY escitalopram oxalate 10 MG tablet 10 mg PO DAILY ibuprofen 800 MG tablet 800 mg PO Q8HP PRN (Reason: Moderate Pain) Qty: 30 0RF cyclobenzaprine 10 mg tablet 10 mg PO TID PRN (Reason: muscle spasm) Qty: 14 0RF Referrals Follow up/Referrals: Ligia Phillips APRN [Primary Care Provider] - See instructions Activity Restrictions/Add. Instructions Additional Instructions/Restrictions: You may bear weight as tolerated and use your boot as needed for comfort. You may take Tylenol or your meloxicam as needed for pain do not take ibuprofen on top of the meloxicam that you are already taking. You may ice the area and elevate it as needed as well. Clinical Impressions Clinical Impression: Left ankle sprain Discharge ED Provider: Galen Ordoñez General Adult HPI General Chief complaint: PAIN Stated complaint: AO [id number] left ankle injury, home Time Seen by Provider: 06/28/23 10:41 Mode of Arrival: Wheelchair Source of Information: Patient Limitations: No Limitations Description of Symptoms (Recalled from ER Triage Doc. by RN): pt presents to ED c/o left ankle pain/injury that occured around 1000 this date. History of Present Illness HPI narrative: 37-year-old female here with left ankle injury. She was walking in her yard and stepped in a hole and had an inversion injury hearing a pop with pain and swelling on the lateral malleolus of her left ankle. No significant lower leg or foot pain she states. No other injuries. She is on meloxicam chronically. Related Data Home Medications Medication Instructions Recorded Confirmed escitalopram oxalate 10 mg tablet 10 mg PO DAILY mood 11/11/18 04/08/23 hydrochlorothiazide 25 mg tablet 25 mg PO DAILY Fluid 11/11/18 04/08/23 cetirizine 10 mg tablet 10 mg PO DAILY 03/05/23 04/08/23 cholecalciferol (vitamin D3) 50 100 mcg PO DAILY 03/05/23 04/08/23 mcg (2,000 unit) capsule thyroid (pork) 120 mg tablet 120 mg PO DAILY 03/05/23 04/08/23 ([place] Thyroid) atorvastatin 10 mg tablet 10 mg PO DAILY 04/08/23 04/08/23 meloxicam 15 mg tablet 15 mg PO DAILY 04/08/23 04/08/23 Previous Rx's Medication Instructions Recorded ibuprofen 800 mg tablet 800 mg PO Q8HP PRN Moderate Pain 02/10/22 #30 tabs cyclobenzaprine 10 mg tablet 10 mg PO TID PRN muscle spasm #14 03/26/23 tabs propranolol 80 mg tablet 80 mg PO BID #60 tabs 04/08/23 Allergies Allergy/AdvReac Type Severity Reaction Status Date / Time benztropine Allergy Unknown Verified 04/08/23 09:00 allergy reaction prochlorperazine Allergy Unknown Verified 04/08/23 09:00 allergy reaction PFSH PFSH Disclaimer: The information contained in this section may have been updated after the patient was seen, as this information can be updated by other users. Medical History (Updated 06/28/23 @ 10:49 by Galen Ordoñez MD) Abnormal electrocardiogram [ECG] [EKG] Chest pain Dyspnea Hyperlipidemia Hypertension PAC (premature atrial contraction) Palpitations PVC (premature ventricular contraction) Social History Smoking Status: Never smoker alcohol intake: never substance use type: other curren
--- NOTE | 2023-06-28 10:49 | PC.NURSE ---
pt going to radiology at this time.
--- NOTE | 2023-06-28 10:55 | PC.NURSE ---
pt return from xray
[2023-06-28 11:00] VITALS: BP 122/80; PULSE 75; O2SAT 94
[2023-06-28 11:09] VITALS: BP 122/80; PULSE 75; RESP 16; TEMP 36.5; O2SAT 98
--- NOTE | 2023-07-07 02:28 | PC.NURSE ---
chart accessed for demographics for ortho papers
== END 2023-06-28 11:18 | disposition home or self-care (01) ==
PROVIDERS: Emergency Provider Student in an Organized Health Care Education/Training Program; PCP Nurse Practitioner Family
DX: S93.402A Sprain of unspecified ligament of left ankle, initial encounter (principal); I10 Essential (primary) hypertension; E78.5 Hyperlipidemia, unspecified; X50.1XXA Overexertion from prolonged static or awkward postures, initial encounter
CPT/HCPCS: 73610; 73630; 99284

== ENCOUNTER 2023-08-31 08:58 | Emergency (ER) | payer BC, SELFPAY ==
[2023-08-31 09:10] VITALS: BP 140/86; PULSE 69; RESP 18; TEMP 36.8; O2SAT 95; BMI 35.4
--- NOTE | 2023-08-31 09:18 | EXP.UTC ---
Discharge Plan Disposition Patient Disposition: Home, Self-Care Condition: Good Prescriptions Prescriptions: New methylprednisolone 4 mg Tablets,Dose Pack 4 mg PO DIRECTED Qty: 21 0RF cefdinir 300 mg capsule 300 mg PO BID Qty: 20 0RF No Action atorvastatin 10 mg tablet 10 mg PO DAILY Patient Comments: TAKE 1 TABLET BY MOUTH EVERY DAY meloxicam 15 mg tablet 15 mg PO DAILY Patient Comments: TAKE 1 TABLET BY MOUTH EVERY DAY propranolol 80 mg tablet 80 mg PO BID Qty: 60 2RF venlafaxine 37.5 mg capsule,extended release 24hr 37.5 mg PO DAILY Patient Comments: TAKE 1 CAPSULE BY MOUTH EVERY DAY WITH FOOD cetirizine 10 mg tablet 10 mg PO DAILY Patient Comments: TAKE 1 TABLET BY MOUTH EVERY DAY Dille Thyroid 120 mg tablet 120 mg PO DAILY Patient Comments: TAKE 1 TABLET BY MOUTH EVERY DAY ON AN EMPTY STOMACH cholecalciferol (vitamin D3) 50 mcg (2,000 unit) capsule 100 mcg PO DAILY hydrochlorothiazide 25 MG tablet 25 mg PO DAILY Referrals Follow up/Referrals: Mylene Mancia APRN [Primary Care Provider] - See instructions Activity Restrictions/Add. Instructions Additional Instructions/Restrictions: Drink plenty of fluids. Take tylenol or ibuprofen for pain or fever. Take the medications as directed. Follow up with your regular doctor within the next 48 to 72 hours for a recheck. GO TO THE ER FOR ANY WORSENING SYMPTOMS Apply warm wet compressed to the painful area below your right ear 3 times per day for around 10 minutes each time. Don't start the oral steroids (methylprednisone) until tomorrow, since you had the shot here today. Clinical Impressions Clinical Impression: Parotiditis Stand Alone Forms Stand Alone Forms: Work/School Release Instructions Patient Instructions: Parotitis, DI for Parotitis-Adult, Dexamethasone Injection Discharge ED Provider: Blake Day [facility] General Stated complaint: right side of face and head pain Time Seen by Provider: 08/31/23 09:18 History of Present Illness Provider Complaint: She states that she has had sore throat and swelling along the right line of her jaw for the past 2 days. Related Data Home Medications Medication Instructions Recorded Confirmed hydrochlorothiazide 25 mg tablet 25 mg PO DAILY Fluid 11/11/18 08/17/23 cetirizine 10 mg tablet 10 mg PO DAILY 03/05/23 08/17/23 cholecalciferol (vitamin D3) 50 100 mcg PO DAILY 03/05/23 08/17/23 mcg (2,000 unit) capsule thyroid (pork) 120 mg tablet 120 mg PO DAILY 03/05/23 08/17/23 (Dille Thyroid) atorvastatin 10 mg tablet 10 mg PO DAILY 04/08/23 08/17/23 meloxicam 15 mg tablet 15 mg PO DAILY 04/08/23 08/17/23 venlafaxine 37.5 mg 37.5 mg PO DAILY 08/17/23 08/17/23 capsule,extended release 24 hr Previous Rx's Medication Instructions Recorded propranolol 80 mg tablet 80 mg PO BID #60 tabs 04/08/23 cefdinir 300 mg capsule 300 mg PO BID #20 caps 08/31/23 methylprednisolone 4 mg tablets in 4 mg PO DIRECTED #21 tabs 08/31/23 a dose pack Allergies Allergy/AdvReac Type Severity Reaction Status Date / Time benztropine Allergy Unknown Verified 08/31/23 09:22 allergy reaction prochlorperazine Allergy Unknown Verified 08/31/23 09:22 allergy reaction PFSH [facility] Disclaimer: The information contained in this section may have been updated after the patient was seen, as this information can be updated by other users. Medical History (Updated 08/31/23 @ 09:44 by Blake Day APRN) Abnormal electrocardiogram [ECG] [EKG] Chest pain Dyspnea Hyperlipidemia Hypertension Lip lesion PAC (premature atrial contraction) Palpitations PVC (premature ventricular contraction) Surgical History No significant past surgical history Family History Other No
[2023-08-31 10:15] VITALS: BP 140/86; PULSE 69; RESP 18; TEMP 36.8; O2SAT 95
== END 2023-08-31 10:15 | disposition home or self-care (01) ==
PROVIDERS: Emergency Provider Nurse Practitioner Family; PCP Nurse Practitioner
DX: K11.20 Sialoadenitis, unspecified (principal); J02.9 Acute pharyngitis, unspecified; R51.9 Headache, unspecified; I10 Essential (primary) hypertension; E78.5 Hyperlipidemia, unspecified
CPT/HCPCS: 96372; 99212; 99214; G0463

== ENCOUNTER → 2023-09-09 11:37 | Outpatient (CLI) | payer BC, SELFPAY ==
--- OUTSIDE RECORDS SUMMARY | 2023-09-09 11:40 | XMS_ITS ---
Author Name Unknown Address [address] [place] [address] Phone [address] [facility] Address [address] [place] [address] Phone Care Team Providers Care Sanding Supervisor Name Role Phone ITALIA PHILLIPS Unavailable [phone] David Kruse MD Unavailable [phone] Reason for Referral Date Encounter Description Provider Reason for Referral 05/19/22 Post Op Dory Weller PA-C Referra l To Physician 05/09/22 Post Op Dory Weller PA-C Referra l To Physician Problems Includes: Active, inactive, and resolved Problems All Visits Onset Date Resolved Date Provider Condition S tatus Joint Pain in the Left Knee 03/19/2022 Nicolás Grier PA-C Active Plan of Treatment Instructions to patient Lose weight Last Documented On 2 2:27PM ; [facility] Lose weight Last Documented On 2 10:04AM ; [facility] Lose weight Last Documented On 2 1:04PM ; [facility] Lose weight Last Documented On 2 1:22PM ; [facility] Lose weight Last Documented On 2 1:20PM ; [facility]
--- OUTSIDE RECORDS SUMMARY | 2023-09-09 11:40 | XMS_ITS ---
Care Plan - [facility] Created on: September 09, 2023 Reyna Harrison : 1985 Sex: Female Author Name Unknown Address [address] [place] [address] Phone Organization [facility] Address [address] [place] [address] Phone Care Team Providers Care Tamper Operator Name Role Phone ITALIA STALEY Unavailable [phone] David Kruse MD Unavailable [phone]
--- OUTSIDE RECORDS SUMMARY | 2023-09-09 11:40 | XMS_ITS | Clinical Summary ---
Author Name Unknown Address [address] [place] [address] Phone Organization [facility] Address [address] [place] [address] Phone Care Team Providers Care Container Washer Name Role Phone ITALIA PHILLIPS Unavailable [phone] David Kruse MD Unavailable [phone] Reason for Referral Date Encounter Description Provider Reason for Referral 05/19/22 Post Op Dory Weller PA-C Referra l To Physician Reason for Visit and Chief Complaint The Chief Complaint is: L knee pain Problems Includes: Problems addressed during this encounter and other active Problems All Visits Onset Date Resolved Date Provider Condition S tatus Joint Pain in the Left Knee 03/19/2022 Nicolás Grier PA-C Active Plan of Treatment Instructions to patient Lose weight Last Documented On 2 2:27PM ; [facility] Assessments Includes: Assessments from this encounter Findings - No diagnosis of underweight - Last Documented On 05/19/2022 3:57PM ; [facility] Instructions Includes: Instructions from this encounter Instructions to patient Lose weight Last Documented On 2 2:27PM ; [facility] Medical Equipment - Implanted Devices Includes: Current De
--- OUTSIDE RECORDS SUMMARY | 2023-09-09 11:41 | XMS_ITS | Clinical Summary ---
Author Name Unknown Address [address] [place] [address] Phone Organization [facility] Address [address] [place] [address] Phone Care Team Providers Care Senior Premium Auditor Name Role Phone ITALIA PHILLIPS Unavailable [phone] David Kruse MD Unavailable [phone] Reason for Referral Date Encounter Description Provider Reason for Referral 05/09/22 Post Op Dory Weller PA-C Referra [...] to patient Lose weight Last Documented On 10:04AM ; [facility] Assessments Includes: Assessments from this encounter Findings - No diagnosis of underweight - Last Documented On 05/09/2022 12:18PM ; [facility] Instructions Includes: Instructions from this encounter Instructions to patient Lose weight Last Documented On 2 10:04AM ; [facility] Medical Equipment - Implanted Devices Includes: Lee
--- OUTSIDE RECORDS SUMMARY | 2023-09-09 11:41 | XMS_ITS | Clinical Summary ---
Author Name Unknown Address [address] [place] [address] Phone Organization [facility] Address [address] [place] [address] Phone Care Team Providers Care Admin Secretary Name Role Phone ITALIA PHILLIPS Unavailable [phone] David Kruse MD Unavailable [phone] Reason for Visit and Chief Complaint [Patient Encounter] Problems Includes: Problems addressed during this encounter and other active Problems All Visits Onset Date Resolved Date Provider Condition S tatus Joint Pain in the Left Knee 03/19/2022 Nicolás Grier PAJessicaC Active Plan of Treatment Pending Tests Order Diagnosis Results Due Ordering P rovider Therapy - Physical Therapy Knee 04/19/22 David Kruse MD Assessments Includes: Assessments from this encounter No Assessments Recorded Medical Equipment - Implanted Devices Includes: Current Devices No Medical Equipment Recorded Medications Includes: Medications discussed during this encounter and other current Medications Current Medications (continue as prescribed) Propranolol HCl 80 MG Oral Tablet 05/08/2022 Provide r: ITALIA PHILLIPS Diagnosis: hydroCHLOROthiazide 25 MG Oral Tablet 05/08/2022 Pro vider: ITALIA PHILLIPS Diagnosis:
--- OUTSIDE RECORDS SUMMARY | 2023-09-09 11:41 | XMS_ITS | Clinical Summary ---
Author Name Unknown Address [address] [place] [address] Phone Organization [facility] Address [address] [place] [address] Phone Care Team Providers Care All Terrain Vehicle Racer Name Role Phone PHILLIPSITALIA Unavailable [phone] David Kruse MD Unavailable [phone] Reason for Visit and Chief Complaint [facility] Problems Includes: Problems addressed during this encounter and other active Problems All Visits Onset Date Resolved Date Provider Condition S tatus Joint Pain in the Left Knee 03/19/2022 Nicolás Grier PA-C Active Plan of Treatment No Plan of Treatment Recorded Assessments Includes: Assessments from this encounter No Assessments Recorded Medical Equipment - Implanted Devices Includes: Current Devices No Medical Equipment Recorded Medications Includes: Medications discussed during this encounter and other current Medications Current Medications (continue as prescribed) Propranolol HCl 80 MG Oral Tablet 05/08/2022 Provide r: ITALIA PHILLIPS Diagnosis: hydroCHLOROthiazide 25 MG Oral Tablet 05/08/2022 Pro vider: ITALIA PHILLIPS Diagnosis: oxyCODONE HCl 5 MG Oral Tablet 04/26/2022 Provider: David Kruse MD
--- OUTSIDE RECORDS SUMMARY | 2023-09-09 11:41 | XMS_ITS | Clinical Summary ---
Author Name Unknown Address [address] [address] Phone Organization [facility] Address [address] [place] [address] Phone Care Team Providers Care Transcript Clerk Name Role Phone ITALIA PHILLIPS Unavailable [phone] David Kruse MD Unavailable [phone] Reason for Visit and Chief Complaint BRACE FITTING Problems Includes: Problems addressed during this encounter [...]
--- NOTE | 2023-09-09 12:06 | XR_ITS ---
FINAL REPORT CLINICAL HISTORY: NECK PAIN COMPARISON: None FINDINGS: CERVICAL SPINE 5 views were obtained. There is no acute fracture or malalignment. Inter-vertebral disc and vertebral body heights are preserved. Cervical lordosis is preserved. Facet joints are properly aligned. There is mild multilevel degenerative disc disease, most pronounced at C5-6. Precervical soft tissues are unremarkable. IMPRESSION: Mild degenerative change without acute process. Reviewed, Interpreted and Dictated by Meredith Ybarra MD Transcribed by Rhina Sanabria Authenticated and [facility]
[2023-09-09 12:14] LABS: Urine Pregnancy, HCG Qual. Negative (Negative)
[2023-09-09 12:16] LABS: Basophils % 0.4 % (0.1-2.0); Eosinophils # 0.3 K/mm3 (0.0-0.4); Eosinophils % 2.9 % (0.1-12.0); Hematocrit 40.3 % (37.0-47.0); Hemoglobin 14.5 g/dL (12.2-16.2); Lymphocytes # 2.3 K/mm3 (0.7-4.5); Lymphocytes % 26.5 % (10-50); Mean Corpuscular HGB Conc 35.9 g/dL (31.8-35.4); Mean Corpuscular Hemoglobin 31.8 pg (27.0-31.2); Mean Corpuscular Volume 88.7 fl (81-99); Mean Platelet Volume 7.9 fl (7.4-10.4); Monocytes # 0.4 K/mm3 (0.1-1.0); Monocytes % 4.4 % (1.7-9.3); Neutrophils # 5.6 K/mm3 (1.8-7.8); Neutrophils % 65.8 % (37.0-80.0); Platelet Count 248 K/mm3 (142-424); Red Blood Count 4.55 M/mm3 (4.20-5.40); Red Cell Distribution Width 13.1 % (11.5-17.5); White Blood Count 8.5 K/mm3 (4.8-10.8)
[2023-09-09 12:40] LABS: Chloride 105 mmol/L (98-107)
[2023-09-09 12:41] LABS: Potassium 3.4 mmoL/L (3.5-5.1); Sodium 139 mmol/L (136-145)
[2023-09-09 12:43] LABS: Alanine Aminotransferase 34 U/L (12-78); Alkaline Phosphatase 58 U/L (38-126); Aspartate Amino Transferase 32 U/L (14-36); Bilirubin,Total 0.3 mg/dl (0.2-1.3); Blood Urea Nitrogen 15 mg/dl (7-17); Estimated Glomerular Filt Rate 80 ml/min (>60); GFR (African American) 97 ML/MIN (>60)
[2023-09-09 12:44] LABS: Albumin Level 4.2 g/dl (3.5-5.0); Albumin/Globulin Ratio 1.6 (1.1-1.8); Anion Gap 10.4 mEq/L (5-15); Calcium 8.7 mg/dl (8.4-10.2); Carbon Dioxide 27 mmol/L (22.0-30.0); Globulin 2.7 g/dL (1.3-3.2); Glucose 137 mg/dl (74-100); Total Protein,Serum 6.9 g/dl (6.3-8.2)
== END ==
LOC: RAD 11:39
PROVIDERS: Nurse Practitioner; PCP Family Medicine; Visit Provider Family Medicine
DX: Z01.812 Encounter for preprocedural laboratory examination (principal); K13.0 Diseases of lips; M54.2 Cervicalgia
CPT/HCPCS: 36415; 72050; 80053; 81025; 85025

== ENCOUNTER 2023-09-16 07:15 | Day surgery (SDC) | payer BC, SELFPAY ==
[2023-09-14 12:51] VITALS: BMI 37.2
[2023-09-16] VITALS (10 sets, daily range): BP systolic 113–134; BP diastolic 74–89; PULSE 72–84; RESP 14–18; TEMP 36–36.7; O2SAT 93–100
--- NOTE | 2023-09-16 07:48 | EXP.ANES.CKL ---
[facility] Disclaimer: The information contained in this section may have been updated after the patient was seen, as this information can be updated by other users. Medical History Abnormal electrocardiogram [ECG] [EKG] Chest pain Crohn's disease Dyspnea History of gastroesophageal reflux (GERD) Hyperlipidemia Hypertension Lip lesion PAC (premature atrial contraction) Palpitations PVC (premature ventricular contraction) Urinary tract infection Surgical History History of cholecystectomy History of hysterectomy No significant past surgical history Family History Other Family history of COPD (chronic obstructive pulmonary disease) Family history of acute congestive heart failure Family history of cancer Family history of diabetes mellitus type II No significant family history Social History Smoking Status: Never smoker alcohol intake: never substance use type: other current occupational status: employed Travel in the last 8 weeks: None household members: spouse and family housing: house 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 caffeine: Yes [facility] Anesthesia Checklist Patient Identification Patient Identification: Arm Band and Verbal (Name & ) Structural Data Admitted From: Home Planned Operative Procedure/s: Lower lip lesion excision Consent for Planned Operative Procedure(s) Verified: Yes NPO Status Verified Time NPO: 00:00 Chart Verification Results Verified: HCG Additional verifications Anesthesia Reactions: No Hx Blood Transfusions: No Blood Transfusion Reaction: No Airway Assessment Mallampati Score:: Class IV C-Spine Mobility Assessed: Yes TMJ Mobility Assessed: Yes Dentition: Good Dentition Neurological Assessment Level of Consciousness: Awake Hx Seizures: No Numbness or tingling in extremities: No Anesthesia Plan Anesthesia Risk discussed: Yes Anesthesia Plan: Verified ASA Class: III Anesthesia Type: MAC
--- NOTE | 2023-09-16 07:49 | ECG_ITS ---
APPROVED REPORT Exam: Resting ECG HR:71 bpm ECG Measurements Heart Rate 71 AXES CO 186 P 11 QRSd 90 QRS -4 QT 413 T 18 QTc 435 Conclusion SINUS RHYTHM Isolated Q in iii BORDERLINE ECG UNCONFIRMED REPORT Electronically signed by : Yoandy Centeno MD 09/16/2023 17:07:56
--- NOTE | 2023-09-16 09:29 | P.OP_ITS ---
the size of the lesion excised was 0.8 cm x 0.6 cm x 0.3 cm Date of procedure: 09/16/23 Pre-op Diagnosis:: lower lip lesion Post-op Diagnosis:: same Procedure performed:: WLE with primary closure lower lip lesion Surgeon:: Piero Dixon MD Anesthesia: LMA Estimated blood loss (mL): 3 Operative findings:: lower lip lesion Operative note:: The patient was brought to the OR, laid in a supine position, and anesthesia with an LMA was induced. Lidocaine with epinephrine 1-100,000 approximately 1 cc was injected into the lower lip lesion. 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 There is an obvious area where it appeared to intermittently drain from in the approximate midline of the wet portion of her lower lip. Using a 15 blade I made an ellipse around this area and removed it along with the surrounding mucosa and underlying minor salivary tissue. I excised the tissue down to the muscle. Hemostasis was achieved with bipolar cautery. I did not appreciate on palpation any further masses or cysts, nor did I see any visually. It was closed with interrupted chromic sutures and she was turned back over to anesthesia to be awoken. Condition: stable Disposition: PACU Complications:: none
--- NOTE | 2023-09-16 09:41 | SUR.PHASEI ---
[id number] - clinic called about meds to beds, pt estimated time to post op 30 min
--- NOTE | 2023-09-16 09:46 | P.PNANES_ITS ---
[facility] Anesthesia Record Part I Anesthesia Record I Intake, IV Amount: 650 Hydration: Adequate Estimated blood loss (mL): 5 Urine output (mL): 0 Blood Products used (#): none Blood Pressure: 121/86 SaO2: 93 Pulse Rate: 84 Airway Patency: Patent Respiratory Rate: 16 Temperature: 96.8 F Patient is:: Awake (Talking) Stable to PACU at:: 09:40
--- NOTE | 2023-09-16 10:14 | SUR.PHASEII ---
1008- clinic pharmacy contacted for meds to beds delivery
--- NOTE | 2023-09-16 10:53 | P.PNANES_ITS ---
[facility] Anesthesia Record Part I Anesthesia Record I Intake, IV Amount: 800 Hydration: Adequate Estimated blood loss (mL): 5 Urine output (mL): 0 Blood Products used (#): none Blood Pressure: 134/76 SaO2: 100 Pulse Rate: 73 Airway Patency: Patent Respiratory Rate: 14 Temperature: 98.0 F Patient is:: Awake (Talking) and Stable Stable to PACU at:: 10:55
--- NOTE | 2023-09-21 07:55 | P.PNANES_ITS ---
[facility] Anesthesia Record Part II Anesthesia Record Part II Discharge Time: 10:05 Destination: Surgical Day Care (OP Surgery) PACU nurse assessment reviewed?: Yes Patient Condition:: Good Anesthesia Complications:: None Swallowing reflex intact?: Yes Airway Patency: Patent Cyanosis?: No Blood Pressure: 118/88 SaO2: 95 Respiratory Rate: 16 Pulse Rate: 73 Temperature: 98 F Mental Status: Alert & Oriented Pain level:: 0 Nausea and/or vomitting:: None Intake, IV Amount: 0 Hydration: Adequate
[2023-09-21 07:56] VITALS: BP 118/88; PULSE 73; RESP 16; TEMP 36.6; O2SAT 95
== END 2023-09-16 10:33 | disposition home or self-care (01) ==
PROVIDERS: PCP Family Medicine; Visit Provider Student in an Organized Health Care Education/Training Program
PROC: (CPT 11442; principal; 2023-09-16 08:45)
DX: Q38.6 Other congenital malformations of mouth (principal)
CPT/HCPCS: 11442; 93005; J2405

== ENCOUNTER 2024-03-16 16:05 | Emergency (ER) | payer BC, SELFPAY ==
[2024-03-16 16:06] VITALS: BP 131/108; PULSE 109; RESP 18; TEMP 36.7; O2SAT 97; BMI 39.6
--- NOTE | 2024-03-16 16:11 | ECG_ITS ---
APPROVED REPORT Exam: Resting ECG HR:112 bpm ECG Measurements Heart Rate 112 AXES NE 184 P 34 QRSd 71 QRS 5 QT 321 T 5 QTc 388 Conclusion SINUS TACHYCARDIA POSSIBLE ANTERIOR MYOCARDIAL INFARCTION , PROBABLY OLD [30 ms Q WAVE IN V3/V4, OR R < 0.2 mV IN V4] ABNORMAL RHYTHM ECG Electronically signed by : RAYMOND ELAINE, 03/16/2024 23:15:12
--- NOTE | 2024-03-16 16:18 | XR_ITS ---
PROCEDURE INFORMATION: Exam: XR Chest Exam date and time: 03/16/2024 4:43 PM Age: 38 years old Clinical indication: Other: Palpitations TECHNIQUE: Imaging protocol: Radiologic exam of the chest. Views: 1 view. COMPARISON: CR XR CHEST PORTABLE 03/26/2023 8:56 AM FINDINGS: Lungs: No evidence of acute pulmonary disease or infiltrates Pleural spaces: No large effusion or pneumothorax. Heart/Mediastinum: No evidence of mediastinal widening or cardiac silhouette enlargement; the mediastinum and heart appear within normal limits for contour and size. Bones/joints: No evidence of acute osseous abnormalities within the visualized portions of the thoracic spine and ribs. Osseous structures appear appropriate for patient age. IMPRESSION: No dense parenchymal consolidation, pleural effusion, or pneumothorax.
--- NOTE | 2024-03-16 16:23 | HMH.EDGENADL ---
Discharge Plan Disposition Patient Disposition: Home, Self-Care Condition: Good Prescriptions Prescriptions: No Action atorvastatin 10 mg tablet 10 mg PO DAILY Patient Comments: TAKE 1 TABLET BY MOUTH EVERY DAY meloxicam 15 mg tablet 15 mg PO DAILY Patient Comments: TAKE 1 TABLET BY MOUTH EVERY DAY propranolol 80 mg tablet 80 mg PO BID Qty: 60 2RF sulfamethoxazole-trimethoprim [Bactrim DS] 800-160 mg tablet 1 tab PO BID 7 Days Qty: 14 0RF mupirocin 2 % ointment 1 applic topical BID Qty: 15 3RF cetirizine 10 mg tablet 10 mg PO DAILY Patient Comments: TAKE 1 TABLET BY MOUTH EVERY DAY [place] Thyroid 120 mg tablet 120 mg PO DAILY Patient Comments: TAKE 1 TABLET BY MOUTH EVERY DAY ON AN EMPTY STOMACH cholecalciferol (vitamin D3) 50 mcg (2,000 unit) capsule 100 mcg PO DAILY venlafaxine 37.5 mg capsule,extended release 24hr 37.5 mg PO DAILY Qty: 30 0RF Rx Instructions: patient needs an appt before anymore refills hydrochlorothiazide 25 MG tablet 25 mg PO DAILY hydrocodone-acetaminophen 5-325 mg tablet 1 tab PO Q8H PRN (Reason: pain) 3 Days Qty: 10 0RF ondansetron HCl [ondansetron HCl] 4 mg tablet 4 mg PO TIDP PRN (Reason: Nausea) Qty: 10 0RF Referrals Follow up/Referrals: Lita Butler MD [Primary Care Provider] - See instructions Activity Restrictions/Add. Instructions Additional Instructions/Restrictions: You were evaluated in the emergency department today. Please make sure that you stay hydrated and drink plenty of fluids. Your labs today are reassuring. Screen for blood clots is negative, your heart enzyme is negative, your electrolytes are within normal range, and your thyroid hormone looks to be within normal range as well. Follow-up with your primary care provider over the next week for reassessment. Return to the emergency department for any new or worsening symptoms. Clinical Impressions Clinical Impression: Sinus tachycardia, Dehydration Instructions Patient Instructions: DI for Dehydration -- Adult, DI for Tachycardia Discharge ED Provider: Judi Landis General Adult HPI General Chief complaint: Arrhythmia/Palpitations Stated complaint: high pulse rate, MOSER, , feels like indigest Time Seen by Provider: 03/16/24 16:08 Mode of Arrival: Ambulatory Source of Information: Patient Limitations: No Limitations Description of Symptoms (Recalled from ER Triage Doc. by RN): Patient reports heart burn for a couple of days. States she went to her ENT today and was told she had an elevated heart rate and to continue to monitor it. States she went home and her heart rate stayed elevated so she came in for evaluation. History of Present Illness HPI narrative: This patient is a 38-year-old female who has history of Nathalia's, hypertension, hyperlipidemia, PACs, PVCs, palpitations, GERD, and Crohn's disease presenting to the emergency department for evaluation with concern for high heart rate. Patient reports that she has had heartburn for few days. She went to her ENT today and was told her heart rate was high. She went home and continue checking it, and even though she was resting and not exerting herself, her heart rate did not go below 100. She states it was in the 120s at home, so she came in for evaluation. She states that she has had the acid reflux type symptoms as well as seasonal allergies, but she denies any other concerns or complaints such as fevers, chest pain, abdominal pain, nausea, vomiting, changes in bowel movements, changes in oral intake, urinary symptoms, rashes, swelling, or other concerns. She notes extensive cardiac history in her family. She denies any recent calf pain, swelling, surgeries, immobilization, or travel. No history of blood clots or clotting disorders. Related Data Home Medications Medication Instructions Recorded Confirmed hydrochlorothiazide 25 mg tablet 25 mg PO DAILY Fluid 11/11/18 03/16/24 cetirizine 10 mg tablet 10 mg PO DAILY 03/05/23 03/16/24 cholecalciferol (vitamin D3) 50 100 mcg PO DAILY 03/05/23 03/16/24 mcg (2,000 unit) capsule thyroid (pork) 120 mg tablet 120 mg PO DAILY 03/05/23 03/16/24 ([place] Thyroid) atorvastatin 10 mg tablet 10 mg PO DAILY 04/08/23 03/16/24 meloxicam 15 mg tablet 15 mg PO DAILY 04/08/23 03/16/24 Previous Rx's Medication Instructions Recorded propranolol 80 mg tablet 80 mg PO BID #60 tabs 04/08/23 hydrocodone 5 mg-acetaminophen 325 1 tab PO Q8H PRN pain 3 days #10 09/16/23 mg tablet tabs ondansetron HCl 4 mg tablet 4 mg PO TIDP PRN Nausea #10 tabs 09/16/23 venlafaxine 37.5 mg 37.5 mg PO DAILY #30 caps 10/14/23 capsule,extended release 24 hr mupirocin 2 % topical ointment 1 applic topical BID #15 grams 03/16/24 sulfamethoxazole 800 1 tab PO BID 7 days #14 tabs 03/16/24 mg-trimethoprim 160 mg tablet (Bactrim DS) Allergies Allergy/AdvReac Type Severity Reaction Status Date / Time benztropine Allergy Rash Verified 03/16/24 17:35 prochlorperazine Allergy Rash Verified 03/16/24 17:35 [facility] Disclaimer: The information contained in this section may have been updated after the patient was seen, as this information can be updated by other users. Medical History Urinary tract infection History of gastroesophageal reflux (GERD) Crohn's disease Lip lesion Hyperlipidemia Hypertension PVC (premature ventricular contraction) PAC (premature atrial contraction) Palpitations Abnormal electrocardiogram [ECG] [EKG] Dyspnea Chest pain Surgical History History of cholecystectomy History of hysterectomy No significant past surgical history Family History Other Family history of COPD (chronic obstructive pulmonary disease) Family history of acute congestive heart failure Family history of cancer Family history of diabetes mellitus type II No significant family history Social History Smoking Status: Never smoker alcohol intake: never substance use type: other current occupational status: employed Travel in the last 8 weeks: None household members: spouse and family housing: house 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 caffeine: Yes ROS Obtained: Yes All systems reviewed & no additional complaints except as documented Physical Exam General General appearance: alert and in no apparent distress Head Head exam: atraumatic and normocephalic Eye Eye exam: Present normal appearance, PERRL and EOMI ENT ENT exam: Present normal exam, normal oropharynx, mucous membranes moist and normal external ear exam Neck Neck exam: Present normal inspection, full ROM and trachea midline; Absent tenderness Chest Chest inspection: Present normal inspection and symmetric chest wall rise; Absent tenderness Respiratory Respiratory exam: Present normal lung sounds bilaterally; Absent respiratory distress, wheezes, stridor or accessory muscle use Cardiovascular Cardiovascular exam: Present normal rhythm and tachycardia Abdominal Exam Abdominal exam: Present soft; Absent distention, tenderness or guarding Extremities Exam Extremities exam: Present normal inspection, full ROM and normal capillary refill; Absent tenderness or edema Back Exam Back exam: Present normal inspection and full ROM; Absent tenderness Neurological Exam Neurological exam: Present alert, oriented X3, CN II-XII intact and normal gait; Absent motor sensory deficit Psychiatric Psychiatric exam: Present normal affect and normal mood Skin Skin exam: Present warm and dry Medical Decision Making Medical Records Medical records reviewed: Yes I reviewed the patient's medical records. Jose Guadalupe Inquiry Pt receiving controlled substance: No Vital Signs: 03/16/24 16:06 03/16/24 16:30 03/16/24 17:00 Temperature 98.0 F Temperature Source Oral Pulse Rate 108 H 104 H Pulse Rate [Radial] 109 H Respiratory Rate 18 14 21 Blood Pressure 133/96 H 133/92 H Blood Pressure [Right Arm] 131/108 H Blood Pressure Mean [Right Arm] 115 Blood Pressure Source [Right Arm] Automatic Cuff Blood Pressure Position [Right Arm] Sitting 02 Sat by Pulse Oximetry 97 96 97 Oxygen Delivery Method Room Air 03/16/24 17:30 03/16/24 18:00 03/16/24 18:11 Temperature 98 F Temperature Source Oral Pulse Rate 92 H 89 Pulse Rate [Radial] Respiratory Rate 17 20 17 Blood Pressure 124/88 128/96 H 148/95 H Blood Pressure [Right Arm] Blood Pressure Mean [Right Arm] Blood Pressure Source [Right Arm] Blood Pressure Position [Right Arm] 02 Sat by Pulse Oximetry 99 Oxygen Delivery Method Room Air Room Air Lab Data Lab results reviewed: Yes I reviewed the patient's lab results. Lab Results 03/16/24 16:14: WBC 9.1, RBC 4.59, Hgb 14.1, Hct 42.1, MCV 91.5, MCH 30.8, MCHC 33.6, RDW 13.7, Plt Count 313, MPV 8.4, Neut % (Auto) 62.9, Lymph % (Auto) 28.4, [place] % (Auto) 5.7, Eos % (Auto) 2.3, Baso % (Auto) 0.6, Neut # (Auto) 5.7, Lymph # (Auto) 2.6, [place] # (Auto) 0.5, Eos # (Auto) 0.2, Baso # (Auto) 0.1, D-Dimer 0.44, Sodium 141, Potassium 3.4 L, Chloride 104, Carbon Dioxide 27, Anion Gap 13.4, BUN 12, Creatinine 0.70, Estimated Creat Clear 168, Estimated GFR 93, Est GFR ( Amer) 113, Glucose 116 H, Calcium 9.3, Magnesium 1.9, Total Bilirubin 0.3, AST 33, ALT 33, Alkaline Phosphatase 65, Troponin I < 0.01, Total Protein 7.5, Albumin 4.4, Globulin 3.1, Albumin/Globulin Ratio 1.4, TSH 12.40 H, Thyroxine (T4) 8.9, Serum HCG, Qual Negative 03/16/24 16:55: Urine Color Yellow, Urine Appearance Clear, Urine pH 6.5, Ur Specific [place] 1.025, Urine Protein Negative, Urine Glucose (UA) Negative, Urine Ketones Negative, Urine Blood Negative, Urine Nitrate Positive, Urine Bilirubin Negative, Urine Urobilinogen 0.2, Ur Leukocyte Esterase Negative, Urine RBC None, Urine WBC Occasional, Ur Squamous Epith Cells 5-10, Urine Bacteria 3+ 03/16/24 16:14 03/16/24 16:14 Orders (Tests/Meds): ED MEDICATIONS Discontinued Medications Generic Name Dose Route Start Last Admin Trade Name Freq PRN Reason Stop Dose Admin Lactated Ringer's 1,000 mls @ 999 mls/hr 03/16/24 16:44 03/16/24 17:00 Lactated Ringer's 1000 Ml Bag IV 03/16/24 17:44 999 mls/hr .Q1H1M ONE Administration ORDERS Category Date Time Status XR chest portable Stat Exams 03/16/24 16:18 Completed Complete Blood Count Auto Diff Stat Lab 03/16/24 16:14 Completed Comprehensive Metabolic Panel Stat Lab 03/16/24 16:14 Completed D-Dimer Stat Lab 03/16/24 16:14 Completed HCG Qualitative, Serum Stat Lab 03/16/24 16:14 Completed Magnesium Stat Lab 03/16/24 16:14 Completed T4 (Thyroxine) Stat Lab 03/16/24 16:14 Completed Thyroid Stimulating Hormone Stat Lab 03/16/24 16:14 Completed Troponin I Stat Lab 03/16/24 16:14 Completed UA [Urinalysis and Microscopic] Stat Lab 03/16/24 16:55 Completed Urine Culture Stat Micro 03/16/24 16:55 Received ECG Data Tracing #1: I reviewed this ECG and interpreted as documented below: Sinus tachycardia with a ventricular rate of [address] changes concerning for ischemia. Normal axis and intervals. ECG initial impression date: 03/16/24 ECG initial impression time: 16:12 Medical Decision Narrative: In summary, this patient is a 38-year-old female presenting to the Emergency Department for evaluation of high heart rate. Differential diagnoses considered include but are not limited to hypothyroidism, ACS, dysrhythmia, PE, electrolyte derangements, dehydration, anxiety, inappropriate sinus tachycardia. Ruling out the most morbid conditions drove assessment. It should be noted patient's history includes Nathalia's thyroiditis, hypertension, hyperlipidemia which may or may not be at goal therapy. This complicates all aspects of care by increasing patient's risk for morbidity. I reviewed patient's past medical records and noted previous evaluations for palpitations in the past as well as atypical chest pain. On exam, the patient is resting comfortably. She has sinus tachycardia but otherwise vitals are normal. Cardiopulmonary exam is reassuring and she has no calf pain or swelling. Workup included CBC, CMP, troponin, TSH, T4, D-dimer, magnesium, test and chest x-ray. I independently interpreted x-ray prior to the radiologist read and noted no acute focal consolidation or pulmonary edema. Please see their read for final interpretation. Labs were obtained that demonstrated no acute concerning abnormalities with normal electrolytes, normal kidney function, normal blood counts, negative D-dimer, negative troponin, and reassuring thyroid studies. On reassessment, patient had good improvement after administration of a bolus of IV fluids. She advises that she has not been drinking as much as usual. She also notes that she is on a fluid pill. All this could be result of dehydration. On multiple subsequent reassessments, she is resting comfortably with heart rate in the 90s. Given this, I feel that she is appropriate for discharge home with instructions for supportive management, hydration, and close follow-up with her primary care provider. Strict return precautions were given, and the patient was discharged after all questions were answered. Critical Care Critical Care Time Critical Care Time: No
[2024-03-16 16:29] LABS: Basophils # 0.1 K/mm3 (0-0.2); Basophils % 0.6 % (0.1-2.0); Eosinophils # 0.2 K/mm3 (0.0-0.4); Eosinophils % 2.3 % (0.1-12.0); Hematocrit 42.1 % (37.0-47.0); Hemoglobin 14.1 g/dL (12.2-16.2); Lymphocytes # 2.6 K/mm3 (0.7-4.5); Lymphocytes % 28.4 % (10-50); Mean Corpuscular HGB Conc 33.6 g/dL (31.8-35.4); Mean Corpuscular Hemoglobin 30.8 pg (27.0-31.2); Mean Corpuscular Volume 91.5 fl (81-99); Mean Platelet Volume 8.4 fl (7.4-10.4); Monocytes # 0.5 K/mm3 (0.1-1.0); Monocytes % 5.7 % (1.7-9.3); Neutrophils # 5.7 K/mm3 (1.8-7.8); Neutrophils % 62.9 % (37.0-80.0); Platelet Count 313 K/mm3 (142-424); Red Blood Count 4.59 M/mm3 (4.20-5.40); Red Cell Distribution Width 13.7 % (11.5-17.5); White Blood Count 9.1 K/mm3 (4.8-10.8)
[2024-03-16 16:30] VITALS: BP 133/96; PULSE 108; RESP 14; O2SAT 96
[2024-03-16 16:39] LABS: HCG Qualitative, Serum Negative (Negative)
[2024-03-16 16:50] LABS: Alanine Aminotransferase 33 U/L (12-78); Albumin Level 4.4 g/dl (3.5-5.0); Albumin/Globulin Ratio 1.4 (1.1-1.8); Alkaline Phosphatase 65 U/L (38-126); Anion Gap 13.4 mEq/L (5-15); Aspartate Amino Transferase 33 U/L (14-36); Bilirubin,Total 0.3 mg/dl (0.2-1.3); Blood Urea Nitrogen 12 mg/dl (7-17); Calcium 9.3 mg/dl (8.4-10.2); Carbon Dioxide 27 mmol/L (22.0-30.0); Chloride 104 mmol/L (98-107); Creatinine Clearance Estimated 168 mL/min (50-200); Estimated Glomerular Filt Rate 93 ml/min (>60); GFR (African American) 113 ML/MIN (>60); Globulin 3.1 g/dL (1.3-3.2); Glucose 116 mg/dl (74-100); Magnesium 1.9 mg/dl (1.6-2.3); Potassium 3.4 mmoL/L (3.5-5.1); Sodium 141 mmol/L (136-145); Total Protein,Serum 7.5 g/dl (6.3-8.2)
[2024-03-16 16:54] LABS: D-Dimer 0.44 ug/mL (0.0-0.5)
[2024-03-16 17:00] VITALS: BP 133/92; PULSE 104; RESP 21; O2SAT 97
[2024-03-16] MEDS: LACTATED RINGERS 1000ML 1,000 ML 999 ML IV (17:00)
[2024-03-16 17:01] LABS: Microscopic, Urine URINE MICROSCOPIC (MICROSCOPIC)
[2024-03-16 17:03] LABS: Appearance,Urine CLEAR (Clear); Bilirubin,Urine Negative (Negative); Blood, Urine Negative (Negative); Color,Urine YELLOW (Yellow); Glucose,Urine (UA) Negative (Negative); Ketones,Urine Negative (Negative); Leukocyte Esterase,Urine Negative (Negative); Nitrate,Urine POSITIVE (Negative); PH,Urine 6.5 (5.0-8.5); Protein,Urine Negative (Negative); Specific Gravity, Urine 1.025 (1.005-1.030); Urobilinogen,Urine 0.2 EU/dl (0.2)
[2024-03-16 17:08] LABS: T4 (Thyroxine) 8.9 ug/dl (5.53-11.0)
[2024-03-16 17:09] LABS: Troponin I < 0.01 ng/ml (0.00-0.034)
[2024-03-16 17:29] LABS: Bacteria,Urine 3+ /lpf; WBC,Urine Occasional #/hpf (0-3)
[2024-03-16 17:30] VITALS: BP 124/88; RESP 17
[2024-03-16 18:00] VITALS: BP 128/96; PULSE 92; RESP 20; O2SAT 99
[2024-03-16 18:11] VITALS: BP 148/95; PULSE 89; RESP 17; TEMP 36.6; O2SAT 97
--- NOTE | 2024-03-19 08:57 | PC.NURSE ---
urine culture discussed with , antibiotic called into clinic, attempted to call pt, no answer at this time. Will attempt to call back later
--- NOTE | 2024-03-19 14:06 | PC.NURSE ---
attempted to contacted pt to update about antibiotic, message left at this time to return call back
--- NOTE | 2024-03-19 14:12 | PC.NURSE ---
updated pt that antibiotic was called into clinic after her urine culture results. pt will sampler pickup at pharmacy
== END 2024-03-16 18:12 | disposition home or self-care (01) ==
PROVIDERS: Emergency Provider Emergency Medicine; PCP Family Medicine
DX: E86.0 Dehydration (principal); B96.29 Other Escherichia coli [E. coli] as the cause of diseases classified elsewhere; R00.0 Tachycardia, unspecified; K21.9 Gastro-esophageal reflux disease without esophagitis; K50.919 Crohn's disease, unspecified, with unspecified complications; I10 Essential (primary) hypertension; E78.5 Hyperlipidemia, unspecified; E06.3 Autoimmune thyroiditis
CPT/HCPCS: 71045; 80053; 81001; 83735; 84436; 84443; 84484; 84703; 85025; 85378; 87086; 87088; 87186; 93005; 96360; 99285

== ENCOUNTER 2024-12-07 09:37 | Outpatient (CLI) | payer BC, SELFPAY | END 2024-12-07 23:59 | disposition home or self-care (01) | LOC: LAB.DROPOF 12-09 09:37 | PROVIDERS: PCP Family Medicine; Visit Provider Nurse Practitioner | DX: L03.031 Cellulitis of right toe (principal); L60.0 Ingrowing nail; S91.309A Unspecified open wound, unspecified foot, initial encounter | CPT/HCPCS: 87070; 87077; 87186; 87205 ==

== ENCOUNTER 2024-12-30 11:00 | Outpatient (RCR) | payer BC, SELFPAY | END 2024-12-30 23:59 | disposition home or self-care (01) | LOC: OT 11:00 | PROVIDERS: Visit Provider Physician Assistant | DX: M25.511 Pain in right shoulder (principal); S46.011A Strain of muscle(s) and tendon(s) of the rotator cuff of right shoulder, initial encounter | CPT/HCPCS: 97014; 97035; 97140; 97165; G0283 ==

== ENCOUNTER 2025-01-13 13:00 | Outpatient (RCR) | payer BC, SELFPAY | END 2025-01-13 23:59 | disposition home or self-care (01) | LOC: OT 13:00 | PROVIDERS: Visit Provider Physician Assistant | DX: S46.011A Strain of muscle(s) and tendon(s) of the rotator cuff of right shoulder, initial encounter (principal) | CPT/HCPCS: 97014; 97035; 97110; 97140; G0283 ==

== ENCOUNTER 2025-02-10 07:30 | Outpatient (CLI) | payer BC, SELFPAY ==
--- NOTE | 2025-02-10 | MR_ITS ---
FINAL REPORT TECHNIQUE: Multiplanar MR following intra-articular contrast injection CLINICAL HISTORY: arthrogram, right shoulder pain with limited rom COMPARISON: None FINDINGS: Marrow signal: Unremarkable Glenohumeral joint: Injected contrast remains confined to the joint space. There is no evidence of loose body. AC joint: No obvious impingement. No significant hypertrophic changes. Rotator cuff: No evidence of tear Labrum: Normal morphology without tear. There is a sublabial foramen of the upper anterior labrum as a normal variant. Biceps tendon: Intra-articular long head biceps tendon intact. IMPRESSION: No evidence of rotator cuff or labral tear. Reviewed, Interpreted and Dictated by Brittany Child MD Transcribed by Rhina Sanabria Authenticated and [facility]
--- NOTE | 2025-02-10 07:42 | IR_ITS ---
FINAL REPORT CLINICAL HISTORY: PAIN . .21 fluoro time 2.31 mgy 0.2 prohance 10ml isovue 300 FINDINGS: Arthrogram Right shoulder injection for MRI arthrogram HISTORY: Right shoulder pain. PROCEDURE: After informed consent was obtained, a time-out was performed. Utilizing local anesthesia and sterile technique, with direct fluoroscopic guidance, access to the joint was obtained . A small amount of contrast was injected to confirm needle tip location. Additional gadolinium contrast was injected. IMPRESSION: Status post injection for MRI arthrogram without immediate complication. Please see MRI report. Fluoroscopy time: 21 seconds Radiation exposure in Reference air Kerma: 2.31 mGy Films reviewed , interpreted and dictated by Dr. Child. Transcribed by Rasheed Baca PA-C. Reviewed, Interpreted and Dictated by Brittany Child MD Transcribed by EDNA Santiago Authenticated and [facility]
[2025-02-10] MEDS: GADOTERIDOL INJ 10ML SYRINGE IV (08:16)
[2025-02-10] MEDS: IOPAMIDOL-300 (61%) 100ML VIAL 10 ML IV (08:16)
== END 2025-02-10 23:59 | disposition home or self-care (01) ==
LOC: RAD 07:30
PROVIDERS: PCP Family Medicine; Visit Provider Physician Assistant
DX: M25.511 Pain in right shoulder (principal)
CPT/HCPCS: 73040; 73222; A9576; Q9967